=== PATIENT | female | born 1995 | race Two or more races ===

== ENCOUNTER 2019-08-29 01:33 | Inpatient (IN) | payer OTHER ==
[~2019-08-29] VITALS: Ht 160 cm; Wt 72.1 kg
[2019-08-29] MEDS ORDERED: PRENATAL TABLE1 EAC1 PO (02:45)
== END 2019-08-31 16:02 | disposition home or self-care (01) | DRG 807 ==
LOC: LDR 01:33 → OB/GYN 01:33
PROVIDERS: ADMIT Obstetrics & Gynecology
PROC: 10E0XZZ Delivery of Products of Conception, External Approach (ICD-10-PCS; principal; 2019-08-29)
PROC: 10907ZC Drainage of Amniotic Fluid, Therapeutic from Products of Conception, Via Natural or Artificial Opening (ICD-10-PCS; 2019-08-29)
PROC: 3E033VJ Introduction of Other Hormone into Peripheral Vein, Percutaneous Approach (ICD-10-PCS; 2019-08-29)
PROC: 4A1HXCZ Monitoring of Products of Conception, Cardiac Rate, External Approach (ICD-10-PCS; 2019-08-29)
DX: O80 Encounter for full-term uncomplicated delivery (principal); Z37.0 Single live birth; Z3A.39 39 weeks gestation of pregnancy